=== PATIENT | male | born 1960 | race Caucasian/White ===

== ENCOUNTER 2019-10-12 07:27 | Day surgery (SDC) | payer OTHER ==
[2019-10-11 09:04] LABS: HEMATOCRIT 38.3 % (42.0-54.0); HEMOGLOBIN 11.7 g/dL (13.5-17.5); MCH 23.5 pg (26.0-34.0); MCHC 30.5 g/dL (31.0-37.0); MCV 76.9 fL (80.0-100.0); MEAN PLATELET VOLUME 10.3 fL (7.4-10.4); RBC 4.98 10x6/uL (4.20-6.10); RDW 16.8 % (11.5-14.5); WBC 8.2 10x3/uL (4.8-10.8)
[2019-10-11 09:13] LABS: ANION GAP 12.7 mmol/L (8-16); CALCIUM 8.2 mg/dL (8.5-10.1); CARBON DIOXIDE 24.4 mmol/L (21.0-32.0); CREATININE - SERUM 1.1 mg/dL (0.6-1.3); POTASSIUM - SERUM 4.1 mmol/L (3.5-5.1)
[~2019-10-12] VITALS: Ht 172.7 cm; Wt 118.8 kg
--- NOTE | ~2019-10-12 | OP ---
PATIENT NAME: TIM YOUNGBLOOD MEDICAL RECORD: [id number] :60 LOCATION:[facility] ADMISSION DATE: SURGEON: ARI GRANADOS MD DATE OF OPERATION: 10/12/2019 DATE OF SERVICE: 10/12/2019 PREOPERATIVE DIAGNOSES: Severe lumbar spinal stenosis at L3-L4 with lumbar radiculopathy at L3 and L4. POSTOPERATIVE DIAGNOSES: Severe lumbar spinal stenosis at L3-L4 with lumbar radiculopathy at L3 and L4. PROCEDURE: Lumbar laminectomy, medial facetectomy and foraminotomy and sublaminar decompression at L3-L4. SURGEON: Ari Granados MD DESCRIPTION AND TECHNIQUE: After induction of general endotracheal anesthesia, the patient was rolled prone on a Manuel frame. Lumbar spine was prepped and draped in usual sterile fashion. Fluoroscopic x-ray and spinal needle localized the L3-L4 interspace on the left side. After infiltration of 1:100,000 epinephrine with 1% lidocaine, a stab incision was created with #11 blade and series of dilators was used to advance a METRx retractor to the L3-L4 interspace on the left side. Flow was confirmed with fluoroscopic x-ray. A microscope and Midas Tino drill were used to perform a laminectomy, medial facetectomy and foraminotomy at L3-L4 on the left. Hypertrophied ligamentum flavum was removed with Cloward rongeurs. Following this, the spinous process was undermined with the Midas-Tino drill. Hypertrophied ligamentum flavum was removed in the central portion of the canal and then the retractor was tilted to the opposite side. Hypertrophied ligamentum flavum was removed in a sublaminar space under microscopic illumination. The opposite L3 and L4 nerve roots were visualized with this view and were decompressed well. Meticulous hemostasis was maintained throughout the wound. The wound was irrigated with copious amounts of Ancef irrigant solution. The retractors were removed. The fascia was closed with 2-0 Vicryl suture, the subdermal layer was closed with 3-0 Vicryl suture. The skin was reapproximated with vicenta. A sterile dressing was applied to the wound. The patient was awakened in good condition, taken to recovery. All counts were reported as correct. Estimated blood loss was minimal. TRANSINT:[id number] Voice Confirmation ID: [id number] DOCUMENT ID: [id number] ARI GRANADOS MD CC: [id number] DICTATION DATE: 10/25/19 1011 ACCORDION REPAIRER: 10/25/19 1124 [facility] 10/12/19 [place] [id number] [place] [id number]
[~2019-10-12 07:27] MED LIST: ALDACTONE25 MG PO; BAYER CHEWABLE81 MG PO; CYMBALTA60 MG PO; FOLIC ACID1 MG PO; HYDROCODON-ACE1 EA10 PO; ISOSORBIDE MONO30 M1 PO; LEXAPRO10 MG PO; LIPITOR40 MG PO; LISINOPRIL2.5 MG PO; LYRICA75 MG PO; ORENCIA250 MG/10 SC; PLAVIX75 MG PO; PROSCAR5 MG PO; PROTONIX40 MG PO; REMERON15 MG PO; REQUIP3 MG PO; TEGRETOL 100 M100 MG PO; TOPAMAX100 MG PO; ZYRTEC10 MG PO
[2019-10-12 07:54] VITALS: BP 142/85; Ht 172.7 cm; Wt 118.8 kg
--- NOTE | 2019-10-12 13:08 | NUR ---
PATIENT POSITIONED ON BACK FRAME ALL AREAS PADDED AND SECURED WITH NO IMPINGEMENTS, GENITALS CHECKED-NO IMPINGEMENTS WELL, HUGO.
[2019-10-12] MEDS ORDERED: HYDROCODON-ACE1 EA10 PO (13:47)
--- NOTE | 2019-10-12 14:16 | NUR ---
1355 STRONG DORSIFLEXION AND PLANTARFLEXION BILATERALLY
--- NOTE | 2019-10-12 15:56 | NUR ---
1543 MEDICATED PO PAIN. REINFORCED DRESSING SMALL AMT OF DRAINAGE 1540 IV REMOVED AND PRESSURE HELD 1555 DR KHAN CALLED ABOUT DRESSING AND WHEN TO RESTART PLAVIX AND ASA
== END 2019-10-12 16:09 | disposition home or self-care (01) ==
LOC: D.OPS 07:27 → D.PAN 09:30 → D.OPS 09:30 → D.PAN 09:45 → D.OPS 09:45
PROVIDERS: Anesthesiology; ATTEND Neurological Surgery
DX: M48.061 Spinal stenosis, lumbar region without neurogenic claudication (principal); M54.16 Radiculopathy, lumbar region; E78.2 Mixed hyperlipidemia; I10 Essential (primary) hypertension; K21.9 Gastro-esophageal reflux disease without esophagitis; I25.10 Atherosclerotic heart disease of native coronary artery without angina pectoris

== ENCOUNTER 2019-10-14 11:24 | Emergency (ER) | payer OTHER ==
[~2019-10-14] VITALS: Ht 172.7 cm; Wt 118.2 kg
[2019-10-14 11:26] VITALS: Ht 172.7 cm; Wt 118.2 kg
[2019-10-14] MEDS ORDERED: MEDROL DOSE PACK4 MG PO (12:50)
[2019-10-14 12:57] VITALS: BP 128/84
== END 2019-10-14 12:58 | disposition home or self-care (01) ==
LOC: D.ER 11:24
DX: M54.10 Radiculopathy, site unspecified (principal); T81.89XA Other complications of procedures, not elsewhere classified, initial encounter; R20.0 Anesthesia of skin; I10 Essential (primary) hypertension